=== PATIENT | female | born 1945 | race Hispanic/Latino ===

== ENCOUNTER 2017-10-02 10:05 | Day surgery (SDC) | payer MEDICARE, MEDICAID ==
[2017-09-22 12:18] VITALS: BMI 42.6
[2017-10-02] MEDS ORDERED: Propofol 10 mg/ml Inj (20 ML) ONE (11:48)
[2017-10-02] MEDS ORDERED: Sodium Chloride 0.9% 1,000 ML IV SCH (12:15)
[2017-10-02 14:12] VITALS: BP 133/54; PULSE 68; RESP 20; TEMP 97.8
[2017-10-02 14:13] VITALS: O2SAT 94
== END 2017-10-02 16:10 ==
LOC: ENDO 10:05
PROVIDERS: ATTEND Internal Medicine Gastroenterology
DX: R19.7 Diarrhea, unspecified (principal); K57.30 Diverticulosis of large intestine without perforation or abscess without bleeding; K64.8 Other hemorrhoids; I10 Essential (primary) hypertension; E11.9 Type 2 diabetes mellitus without complications; Z79.84 Long term (current) use of oral hypoglycemic drugs
CPT/HCPCS: 45380; 82948; 88305; J2001; J2704; J3010; J7040 ×2

== ENCOUNTER 2017-11-24 09:21 | Day surgery (SDC) | payer MEDICARE, MEDICAID ==
[2017-11-13 13:02] VITALS: BMI 26.4
[2017-11-24] MEDS ORDERED: Propofol 10 mg/ml Inj (20 ML) ONE (10:42)
[2017-11-24] MEDS ORDERED: Sodium Chloride 0.9% 1,000 ML IV SCH (11:30)
[2017-11-24 11:34] VITALS: PULSE 64
[2017-11-24 12:24] VITALS: BP 127/59; RESP 15; TEMP 98.6; O2SAT 96
== END 2017-11-24 15:00 ==
LOC: ENDO 09:21
PROVIDERS: ATTEND Internal Medicine Gastroenterology
DX: K31.7 Polyp of stomach and duodenum (principal); K29.50 Unspecified chronic gastritis without bleeding; K22.8 Other specified diseases of esophagus; R19.7 Diarrhea, unspecified
CPT/HCPCS: 43239; 88104; 88305; 88342; J2001; J2704; J7030; J7040